=== PATIENT | female | born 1945 | race African-American/Black ===

== ENCOUNTER 2017-10-29 15:52 | Emergency (ER) | payer MEDICARE ==
[2017-10-29 16:11] VITALS: BP 131/75
--- NOTE | 2017-10-29 18:29 | ER Document Report ---
ED General - General Mode of Arrival: Ambulatory Information source: Patient TRAVEL OUTSIDE OF THE [place] IN LAST 30 DAYS: No <JOE RUBALCAVA - Last Filed: 10/30/17 00:20> <SHANISRAVANDANIELLENABEEL - Last Filed: 10/30/17 00:43> - General Chief Complaint: Neck Swelling Stated Complaint: NECK PAIN Time Seen by Provider: 10/29/17 18:13 Notes: Patient is a 72 year old female presenting to the emergency department complaining of left sided neck swelling and left sided mouth pain onset 2 days ago. Patient states she originally thought she had a problem with her tooth. Patient also mentions intermittent chest pain onset 4 months ago. Patient states the pain would only last a minute and denies any associated shortness of breath. Patient states she is supposed to be on blood thinners but is currently noncompliant. (JOE RUBALCAVA) - Related Data Allergies/Adverse Reactions: No Known Allergies Allergy (Unverified 10/29/17 15:55) Past Medical History - General Information source: Patient - Social History Smoking Status: Never Smoker Frequency of alcohol use: Rare Drug Abuse: None Family History: Reviewed & Not Pertinent Patient has suicidal ideation: No Patient has homicidal ideation: No - Past Medical History Cardiac Medical History: Reports: Hx Hypertension Past Surgical History: Reports: Hx Hysterectomy <JOE RUBALCAVA - Last Filed: 10/30/17 00:20> Review of Systems - Review of Systems Constitutional: No symptoms reported EENT: See HPI, Mouth pain Cardiovascular: No symptoms reported Respiratory: No symptoms reported Gastrointestinal: No symptoms reported Genitourinary: No symptoms reported Female Genitourinary: No symptoms reported Musculoskeletal: See HPI Skin: No symptoms reported Hematologic/Lymphatic: No symptoms reported Neurological/Psychological: No symptoms reported -: Yes All other systems reviewed and negative <JOE RUBALCAVA - Last Filed: 10/30/17 00:20> - Vital signs Vitals: Temp Pulse Resp BP Pulse Ox 99.2 F 77 16 131/75 H 97 10/29/17 16:09 10/29/17 16:09 10/29/17 16:09 10/29/17 16:09 10/29/17 16:09 - Notes Notes: GENERAL: Alert, interacts well. No acute distress. HEAD: Normocephalic, atraumatic. EYES: Pupils equal, round, and reactive to light. Extraocular movements intact. ENT: Oral mucosa moist, tongue midline. Area of erythema, ulceration and swelling on the left side of mouth, subglossally at level of 3rd molar. NECK: Full range of motion. Supple. Trachea midline, no deviation. Tenderness palpation to the angle of the mandible. Swelling under jaw from midline to the left side, semi-firm, asymmetric. LUNGS: Clear to auscultation bilaterally, no wheezes, rales, or rhonchi. No respiratory distress. HEART: Regular rate and rhythm. No murmurs, gallops, or rubs. ABDOMEN: Soft, non-tender. Non-distended. Bowel sounds present in all 4 quadrants. EXTREMITIES: Moves all 4 extremities spontaneously. NEUROLOGICAL: Alert and oriented x3. Normal speech. PSYCH: Normal affect, normal mood. SKIN: Warm, dry, normal turgor. No rashes or lesions noted. (JOE RUBALCAVA) Course - Laboratory Result Diagrams: 10/29/17 19:01 10/29/17 19:55 - Consults Dr. Rojas Time consulted: 12:18 - States to have patient follow up with him on 10/30/2017. <JOE RUBALCAVA - Last Filed: 10/30/17 00:20> - Laboratory Result Diagrams: 10/29/17 19:01 10/29/17 19:55 <NABEEL HEARD - Last Filed: 10/30/17 00:43> - Re-evaluation Re-evalutation: 10/30/17 00:35 CBC shows slight leukocytosis 10.9, there is no shift, coags normal, BMP shows normal renal function slightly elevated sodium at 135.2. CT scan of the facial bones was ordered because of his concern for possible Yogi's angina and tracking abscess, this actually shows a 3.6 x 2.1 cm poorly defined 36 HU component which may indication inflammation or neoplasm. No drainable fluid collection, no distinct abscess. Patient denies difficulty breathing or difficulty swallowing, complains of pain when she eats but no trouble swallowing. I did discuss this with Dr. Rojas, from ENT who agrees to follow-up with the patient as an outpatient early in the week. Recommends starting prednisone 50 mg daily for the next 5 days as well as Augmentin 875 twice a day for the next 10 days. For the patient's pain I will also give her instructions on using Magic mouthwash swish and spit as well as a limited number of Hooven. Patient will return should she develop any difficulty swallowing, sensations that food is getting stuck, voice changes or any trouble breathing. Currently she is not complaining of any of these things. Patient is visiting from out of town but is agreeable to staying locally in order to get this biopsied as soon as possible. (NABEEL HEARD) - Vital Signs Vital signs: Temp Pulse Resp BP Pulse Ox 99.2 F 77 16 131/75 H 97 10/29/17 16:09 10/29/17 16:09 10/29/17 16:09 10/29/17 16:09 10/29/17 16:09 - Laboratory Laboratory results interpreted by me: 10/29/17 10/29/17 19:01 19:55 WBC 10.9 H RDW 15.5 H Sodium 145.2 H Calcium 10.3 H Discharge <JOE RUBALCAVA - Last Filed: 10/30/17 00:20> <NABEEL HEARD - Last Filed: 10/30/17 00:43> - Discharge Clinical Impression: Mass of floor of mouth Condition: Stable Disposition: HOME, SELF-CARE Additional Instructions: Today we found a mass under your tongue tracking under your jaw. It is possible that this is just an infection however I am concerned it may be cancer. It is very important that you have a biopsy performed on this area. I have already spoken with Dr. Rojas who is a local ear nose and throat doctor. He will see you early in the week either on Wednesday or Wednesday to do further examination and biopsy. In the meantime we will treat you for swelling, pain and infection by using antibiotics in the form of Augmentin, steroids in the form of prednisone and Hooven for pain. You may also use Magic mouthwash swish it around in your mouth and spit it out. This can help to decrease some of the pain underneath your tongue from the ulcerated area. If you develop difficulty swallowing, feeling like food or liquids are getting stuck or any difficulty breathing or any change in your voice please return to the emergency department immediately. Prescriptions: Hydrocodone/Acetaminophen [Hooven 5-325 mg Tablet] 1 tab PO Q6HP PRN #10 tablet PRN Reason: Amox Tr/Potassium Clavulanate [Augmentin 875-125 Tablet] 1 tab PO BID 10 Days tablet Nystatin/Dexameth/Diphen [Magic Mouthwash (Omh Formula) Susp] 5 ml PO QIDP PRN # 120 ml PRN Reason: Prednisone 50 mg PO DAILY #5 tablet Referrals: BRENDA ROJAS DO [ASSOCIATE] - 11/01/17 (call on Wednesday to discuss an appointment ) Scribe Attestation: 10/30/17 00:43 I personally performed the services described in the documentation, reviewed and edited the documentation which was dictated to the scribe in my presence, and it accurately records my words and actions. (NABEEL HEARD) Jelenaibe Documentation - Scribe Written by Zahraa:: Zahraa Amaya, 10/29/2017 18:36 acting as scribe for :: Heidy <JOE RUBALCAVA - Last Filed: 10/30/17 00:20>
[2017-10-29 19:18] LABS: ABSOLUTE BASOPHILS # (AUTO) 0.1 10^3/uL (0.0-0.2); ABSOLUTE EOSINOPHILS # (AUTO) 0.2 10^3/uL (0.0-0.6); ABSOLUTE LYMPHOCYTES (AUTO) 3.1 10^3/uL (0.5-4.7); ABSOLUTE MONOCYTES (AUTO) 0.8 10^3/uL (0.1-1.4); ABSOLUTE NEUT (AUTO) 6.7 10^3/uL (1.7-8.2); BASOPHILS % (AUTO) 0.8 % (0-2); EOSINOPHILS % (AUTO) 1.5 % (0-6); HEMATOCRIT 39.3 % (36.0-47.0); HEMOGLOBIN 13.4 g/dL (12.0-15.5); LYMPHOCYTES % (AUTO) 28.8 % (13-45); MEAN CORPUSCULAR HGB CONC 34.2 g/dL (32.0-36.0); MEAN CORPUSCULAR VOLUME 91 fl (80-97); MONOCYTES % (AUTO) 7.3 % (3-13); PLATELET COUNT 308 10^3/uL (150-450); RED BLOOD COUNT 4.32 10^6/uL (3.72-5.28); RED CELL DISTRIBUTION WIDTH 15.5 % (11.5-14.0); SEGMENTED NEUTROPHILS % (AUTO) 61.6 % (42-78); TOTAL CELLS COUNTED % (AUTO) 100 %; WHITE BLOOD COUNT 10.9 10^3/uL (4.0-10.5)
[2017-10-29 19:21] LABS: INTERNATIONAL RATION (INR) 0.95; PARTIAL THROMBOPLASTIN TIME 27.4 SEC (23.5-35.8); PROTHROMBIN TIME 13.2 SEC (11.4-15.4)
[2017-10-29 21:25] LABS: ANION GAP 13 (5-19); BLOOD UREA NITROGEN 16 mg/dL (7-20); CALCIUM 10.3 mg/dL (8.4-10.2); CARBON DIOXIDE 28 mmol/L (22-30); CHLORIDE 104 mmol/L (98-107); GLUCOSE 101 mg/dL (75-110); POTASSIUM 3.8 mmol/L (3.6-5.0); SODIUM 145.2 mmol/L (137-145)
--- NOTE | 2017-10-29 23:20 | RADIOLOGY REPORT (SQ) ---
EXAM DESCRIPTION: CT MAXILLOFACIAL WITH IV CONTRAST CLINICAL HISTORY: 72 years Female, Swelling under jaw and left side of tongue Comparison: None. Technique: IV contrast. Coronal and sagittal reformat. 3d reconstruction. This exam was performed according to our departmental dose-optimization program, which includes automated exposure control, adjustment of the mA and/or kV according to patient size and/or use of iterative reconstruction technique.[facility]: Dose Right [facility]: CareDose [facility]: Dose Right [facility]: Teradose 4D [facility]: Anthill LIMITATIONS: None Findings: In an area of described symptomatology at the root of the tongue, there is a 3.6 x 2.1 cm poorly defined 36-HU component which may indicate inflammation or neoplasm. Facial bones including orbits, nasal bone, paranasal sinuses, and pterygoid plates appear otherwise intact. Mild disc desiccation. Unremarkable partially visualized inferior cranium, temporal bone, and upper neck. IMPRESSION: 3.6 cm focal swelling at the root of the tongue; differential etiologies include infectious, inflammatory, and neoplastic processes. No drainable fluid collection. No distinct abscess. Recommend contrast MRI and/or Surgical consultation.
[2017-10-30] MEDS ORDERED: HYDROCODONE/ACETAMINOPHEN 5-325 MG TABLET PO ONE (00:32)
[2017-10-30] MEDS ORDERED: PREDNISONE 20 MG TABLET PO ONE (00:32)
[2017-10-30] MEDS ORDERED: AMOXICILLIN TR/POT CLAVULANATE 500-125 MG TAB PO ONE (00:32)
== END 2017-10-30 01:33 | disposition home or self-care (01) ==
LOC: ER 15:52
DX: K13.79 Other lesions of oral mucosa (principal); M54.2 Cervicalgia; I10 Essential (primary) hypertension; Z90.710 Acquired absence of both cervix and uterus
CPT/HCPCS: 99284; 36415; 85025; 85610; 85730; 80048; 70487; A9270 ×3; J7512